=== PATIENT | female | born 1975 | race Two or more races ===

== ENCOUNTER 2017-01-13 10:07 | Day surgery (SDC) | payer OTHER ==
[~2017-01-13] VITALS: Ht 152.4 cm; Wt 63.5 kg
[~2017-01-13 10:07] MED LIST: LORA-407
[2017-01-13 10:37] VITALS: Ht 152.4 cm; Wt 63.5 kg
[2017-01-13 11:08] VITALS: BP 108/66; PULSE 73; RESP 36
--- NOTE | 2017-01-13 11:29 | OPPN ---
Date/Time of Note Date/Time of Note DATE: 01/13/17 TIME: 11:26 Proc Note GI Procedure Date 01/13/17 Pre-procedure Diagnosis rectal bleeding Post-procedure Diagnosis hemorrhoids Surgeon dr llanos Senior Software Development Engineer none Anesthesia Type: moderate sedation EBL none Transfusion required none Biopsy 1: none Grafts/Implants none Complication(s) none Pt Condition post procedure: stable Disposition: home Indications: lower GI bleed Operative\Procedure Findings hemorrhoids BRINA LLANOS MD Jan 13, 2017 11:29
--- NOTE | 2017-01-13 14:57 | GILP ---
DATE OF PROCEDURE: 01/13/2017 PROCEDURE: Colonoscopy. PREOPERATIVE DIAGNOSIS: Lower gastrointestinal bleeding,rule out colorectal neoplasm, arteriovenous malformation, hemorrhoids. POSTOPERATIVE DIAGNOSIS: Moderate degree of hemorrhoids. DESCRIPTION OF PROCEDURE: After informed written consent was obtained, the patient was asked to lie on the left lateral side. Intravenous anesthesia was given by hi which included 3 mg Versed and 75 mcg of fentanyl. When the patient became somnolent, Olympus video colonoscope was introduced into the rectum. The scope was advanced all the way to the cecum. Entire colon appeared perfectly normal. No neoplasm orAVM noted on the way out. A moderate degree of hemorrhoids were noted and the procedure was terminated. PLAN: Recommend high-fiber diet. Repeat colonoscopy in 10 years. Dictated By: Aj Neil MD /keara/kyle /Document#: [id number]
[2017-01-13] MEDS ORDERED: MIDAZOLAM 1 MG/ML 2 ML INJ ONE ×2 (18:21)
[2017-01-13] MEDS ORDERED: FENTAnyl 50 MCG/ML VIAL ONE (18:21)
== END 2017-01-13 12:05 | disposition home or self-care (01) ==
LOC: GIL 10:07
PROVIDERS: ATTEND Internal Medicine Gastroenterology
DX: K92.2 Gastrointestinal hemorrhage, unspecified (principal); K64.9 Unspecified hemorrhoids
CPT/HCPCS: 45378; 84703; J2250; J3010; Z7610

== ENCOUNTER 2018-11-16 14:46 | Emergency (ER) | payer OTHER ==
[~2018-11-16] VITALS: Ht 157.5 cm; Wt 66.1 kg
[2018-11-16 14:55] VITALS: BP 131/75; PULSE 88; RESP 18; Ht 157.5 cm; Wt 66.1 kg
[2018-11-16] MEDS ORDERED: TRIA15CR55 TOP (15:02)
[2018-11-16] MEDS ORDERED: PRED20TA PO (15:02)
[2018-11-16] MEDS ORDERED: BEN25 PO (15:02)
--- NOTE | 2018-11-16 15:04 | ERD ---
ER Documentation Chief Complaint Chief Complaint right leg insect bite x 3 days HPI 43-year-old female presents with itchy lesion on her left calf for the last 3 days. She has additional smaller lesions on her lower extremities. She has children in the household with similar itchy lesions. She denies any known ex posure to insects. She denies fevers, vomiting, shortness of breath, chest pain. ROS All systems reviewed and are negative except as per history of present illness. Medications Home Meds Active Scripts Diphenhydramine Hcl* (Benadryl*) 25 Mg Cap, 25 MG PO Q6, #15 CAP Prov:BASILIO HERNANDEZ MD 11/16/18 Prednisone* (Prednisone*) 20 Mg Tab, 40 MG PO DAILY for 4 Days, TAB Prov:BASILIO HERNANDEZ MD 11/16/18 Triamcinolone Acetonide (Triamcinolone Acetonide) 0.1% - 15 Gm Cream.gm., 1 APPLIC TOP QID for 7 Days, #1 TUB Prov:BASILIO HERNANDEZ MD 11/16/18 Reported Medications Loratadine (Claritin) 10 Mg Tablet 07/29/09 Allergies Allergies: Coded Allergies: No Known Drug Allergy (Verified Allergy, Mild, 05/10/10) PMhx/Soc History of Surgery: Yes () Anesthesia Reaction: No Hx Neurological Disorder: No Hx Respiratory Disorders: No Hx Cardiac Disorders: No Hx Psychiatric Problems: No Hx Miscellaneous Medical Probl: No Hx Alcohol Use: No Hx Substance Use: No Hx Tobacco Use: No Smoking Status: Never smoker FmHx Family History: No diabetes, No coronary disease, No other Physical Exam Vitals Vital Signs Date Temp Pulse Resp B/P (MAP) Pulse Ox O2 O2 Flow FiO2 Time Delivery Rate 11/16/18 98.2 88 18 131/75 98 14:55 (93) Physical Exam Const: No acute distress Head: Atraumatic Eyes: Normal Conjunctiva ENT: Normal External Ears, Nose and Mouth. Neck: Full range of motion. No meningismus. Resp: Clear to auscultation bilaterally Cardio: Regular rate and rhythm, no murmurs Abd: Soft, non tender, non distended. Normal bowel sounds Skin: No petechiae or purpura. Excoriated area in the left calf with redness and central clearing associated with a papule. Scattered small erythematous papules in the lower extremities. No calf swelling or Homans sign. Back: No midline or flank tenderness Ext: No cyanosis, or edema Neur: Awake and alert Psych: Normal Mood and Affect Procedures/MDM Patient presents with what appears to be local reaction to insect bites. She has no signs of anaphylaxis, necrotizing fasciitis, cellulitis, DVT, additional concerning signs or symptoms, purpura or life-threatening rashes. She will treated with triamcinolone, Benadryl, prednisone, recommendations for cold compresses. He is advised to recheck in the next 2 to 3 days for worsening redness, fevers, new worsening symptoms. The patient was stable with no new complaints during the ER course. Clinically, there is no current evidence to suggest meningitis, sepsis, acute abdomen, pneumonia, stroke, acute coronary syndrome, pulmonary embolism, aortic dissection or any other emergent condition appearing to require further evaluation or hospitalization. Patient counseled regarding my diagnostic impression and care plan. Prior to discharge all questions answered. Pt agrees with treatment plan and understands strict return precautions. Pt is instructed to follow up with primary care provider within 24- 48 hours. Precautionary instructions provided including instructions to return to the ER if not improving or for any worsening or changing symptoms or concerns. Disclaimer: Inadvertent spelling and grammatical errors are likely due to EHR/dictation software use and do not reflect on the overall quality of patient care. Also, please note that the electronic time recorded on this note does not necessarily reflect the actual time of the patient encounter. Departure Diagnosis: Primary Impression: Bite wound Condition: Stable Patient Instructions: Insect Bites and Stings Referrals: NO PRIMARY,CARE PHYSICIAN (PCP) Additional Instructions: Cheque otro vez con amaya doctor primario en el proximo [place] or regresa para mas o nueva simptomas- [place]. BASILIO Durand MD Nov 16, 2018 15:04
== END 2018-11-16 15:04 | disposition home or self-care (01) ==
LOC: E/R 14:46
DX: S80.861A Insect bite (nonvenomous), right lower leg, initial encounter (principal); W57.XXXA Bitten or stung by nonvenomous insect and other nonvenomous arthropods, initial encounter; Y92.9 Unspecified place or not applicable
CPT/HCPCS: 99283